=== PATIENT | male | born 1960 | race Caucasian/White ===

== ENCOUNTER → 2021-07-17 | Outpatient (CLI) | payer OTHER ==
[~2021-07-17] MED LIST: AMITRIPTYLINE H50 M2 PO; ASPIR 8181 MG PO; ATIVAN0.5 MG PO; ATIVAN1 M1 PO; CARAFATE 1 GM TA1 GM PO; CARVEDILOL12.5 MG PO; CARVEDILOL25 MG PO; CLOPIDOGREL75 MG PO; COREG6.25 MG PO; EFFIENT10 MG PO; ESCITALOPRAM OX20 MG PO; FISH OIL 1,0001 EAC9 PO; HYDROCODON-ACE1 EAC7 PO; IMDUR 30 MG TAB30 M1 PO; IMDUR 60 MG TAB60 M1 PO; ISORDIL10 MG PO; ISOSORBIDE DINI30 MG PO; LIPITOR40 MG PO; MOTION RELIEF25 MG PO; NEURONTIN 300M300 M2 PO; NITROSTAT0.4 M1 SUBLING; NORCO 10-325 T1 EACH PO; NORCO 5-325 TA1 EAC1 PO; NORFLEX100 MG PO; PANTOPRAZOLE SO40 M1 PO; PROTONIX40 M1 PO; PROTONIX40 MG PO; RANEXA500 MG PO; SERTRALINE HCL50 MG PO; TORADOL 10 MG T10 MG PO; ZETIA10 MG PO
== END ==
LOC: RAD 07:25
PROVIDERS: ATTEND Internal Medicine
DX: R06.00 Dyspnea, unspecified (principal)